=== PATIENT | female | born 1995 | race Caucasian/White ===

== ENCOUNTER 2020-02-01 20:35 | Emergency (ER) | payer OTHER ==
[2020-02-01] MEDS ORDERED: MORPHINE SULFATE 10 MG/ML INJ IV ONE ×2 (21:38→23:24)
[2020-02-01] MEDS ORDERED: ONDANSETRON HCL INJ/PF 4 MG/2 ML SDV IV ONE ×2 (21:39→23:24)
[2020-02-01] MEDS ORDERED: DIAZEPAM INJ 10 MG/2 ML DISP.SYRIN IV ONE (21:40)
[2020-02-01] MEDS ORDERED: KETAMINE HCL INJ 500 MG/10 ML VIAL IV ONE (22:41)
--- NOTE | 2020-02-01 23:59 | RADIOLOGY REPORT (SQ) ---
INDICATION: RightTMJ dislocation . COMPARISON: None CORRELATION: None TECHNIQUE: Noncontrast spiral axial CT images were obtained of the facial bones. Multiplanar reconstructions. This exam was performed according to our departmental dose-optimization program, which includes automated exposure control, adjustment of the mA and/or kV according to patient size and/or use of iterative reconstruction techniques. FINDINGS: Examination is not adequate for evaluation of intracranial contents. Mastoid air cells are clear. Visualized paranasal sinuses are clear. Orbits and eyeballs are unremarkable. No acute displaced fracture seen of the facial bones. Bilateral TMJ dislocations.. . IMPRESSION: Bilateral TMJ dislocation..
[2020-02-02] MEDS ORDERED: METOCLOPRAMIDE HCL INJ/PF 10 MG/2 ML SDV IV ONE (00:43)
[2020-02-02] MEDS ORDERED: PROMETHAZINE HCL INJ 50 MG/1 ML VIAL IM PRN (01:55)
[2020-02-02] MEDS ORDERED: PROMETHAZINE HCL INJ 25 MG/1 ML VIAL ONE (01:59)
--- NOTE | 2020-02-02 02:37 | ER Document Report ---
Entered by BRINDA DUEÑAS SCRIBE 02/01/20 [id number] Acting as scribe for:JOSE LUIS HDZ MD ED General - General Chief Complaint: Jaw Pain Stated Complaint: MOUTH CAN NOT CLOSE Primary Care Provider: BOZENA SANTORO MD [NO LOCAL MD] - Follow up as needed Information source: Patient Notes: This 24-year-old female presents to the emergency department after yawning and having the inability to close her mouth after. Patient said that she feels severe pain in her jaw. Patient explains that she had a root canal done three weeks ago on the right side. Patient said that she feels like there is a bone that is not allowing her to close her mouth. Patient is unable to talk on exam. She provided all information through text on a cellular device at bedside. - Related Data Allergies/Adverse Reactions: No Known Allergies Allergy (Unverified 02/01/20 23:18) Home Medications: BCP Past Medical History - General Information source: Patient - Social History Smoking Status: Never Smoker Cigarette use (# per day): No Chew tobacco use (# tins/day): No Family History: Reviewed & Not Pertinent Patient has suicidal ideation: No Patient has homicidal ideation: No - Medical History Medical History: Negative Surgical Hx: Negative Review of Systems - Review of Systems Constitutional: No symptoms reported EENT: See HPI, Mouth pain, Other - Mouth unable to close Cardiovascular: No symptoms reported Respiratory: No symptoms reported Gastrointestinal: No symptoms reported Genitourinary: No symptoms reported Female Genitourinary: No symptoms reported Musculoskeletal: No symptoms reported Skin: No symptoms reported Hematologic/Lymphatic: No symptoms reported Neurological/Psychological: No symptoms reported -: Yes All other systems reviewed and negative Physical Exam - Vital signs Vitals: Temp Pulse Resp BP Pulse Ox 97 F L 78 16 157/70 H 100 02/01/20 20:42 02/01/20 20:42 02/01/20 20:42 02/01/20 20:42 02/01/20 20:42 - Notes Notes: Physical Exam: General: Alert, appears uncomfortable. HEENT: Atraumatic. PERRL. Extraocular movements intact. Oropharynx clear. Unable to close mouth. Neck: Supple. Non-tender. Respiratory: No respiratory distress. Clear and equal breath sounds bilaterally. Cardiovascular: Regular rate and rhythm. Abdominal: Normal Inspection. Non-tender. No distension. Normal Bowel Sounds. Back: No gross abnormalities. Extremities: Moves all four extremities. Upper extremities: Normal inspection. Normal ROM. Lower extremities: Normal inspection. No edema. Normal ROM. Neurological: Normal cognition. AAOx4. Normal speech. Psychological: Normal affect. Normal Mood. Skin: Warm. Dry. Normal color. Course - Re-evaluation Re-evalutation: 02/02/20 02:16 Patient resting comfortably not showing any signs of distress at this time. - Vital Signs Vital signs: Temp Pulse Resp BP Pulse Ox 97 F L 66 16 129/83 H 97 02/01/20 20:42 02/02/20 01:45 02/02/20 01:45 02/02/20 01:45 02/02/20 01:45 - Diagnostic Test Radiology reviewed: Image reviewed, Reports reviewed Radiology results interpreted by me: 02/02/20 02:16 CT scan of face shows bilateral closed TMJ dislocations. Postreduction plain film x-rays of TMJ joints shows successful reduction of TMJ dislocation bilateral. Procedures - Conscious Sedation Conscious sedation Consent obtained: Yes Indication: unable to close mouth/bilat TMJ dislocation ASA Classification: Choose one classification Emergent conditions applies.: E. - ASA Classification Airway Evaluation: Normal anatomy Mallampati Classification: Class 1 Used during procedure: IV access obtained, Pulse ox on pt., compliance monitor on pt. Medications administered: Ketamine Reversal agents: None I personally performed/intraservice time: 30 min or less Complications: No Discharge - Discharge Clinical Impression: TMJ (dislocation of temporomandibular joint) Condition: Stable Disposition: HOME, SELF-CARE Additional Instructions: Temporomandibular Joint Injury You have an injury to your jaw joint, called the temporomandibular (TMJ) joint. This type of injury usually heals well, but further evaluation is often necessary. Occasionally, chronic symptoms can develop if the TMJ fails to heal well. The joint should be rested. Stay on a diet which requires no chewing -- such as milkshakes, applesauce, and puddings. Avoid any motion of the jaw which provokes pain. Periodic ice packs help decrease swelling and pain. If the physician is suspicious of a major hidden fracture, or if you fail to improve as expected, a specialized X-ray (Panorex) may be scheduled. You should follow up as instructed, and call the physician if you encounter any problems. Today you had a bilateral temporomandibular joint dislocation occurring due to opening your mouth wide during a yawn. CT scan showed bilateral TM J dislocations. And you underwent a procedure with successful closed reduction of both TMJ dislocations proven by plain film x- rays. Currently we have given you a wrap to allow you not to open your mouth wide at this time or to yawn. Please wear this turban wrap around your head and chin and remove prior to going to sleep. And hopefully this reoccurrence does not occur. Advise follow-up with an ear nose and throat doctor. You have shared that you have a dental procedure schedule next week to place crowns in your mouth. With that discussion I recommended that you try to postpone that procedure for now and and have follow-up with an ear nose and throat doctor to be certain that you are stable in terms of the TMJ joints to have such a procedure. Referrals: BOZENA SANTORO MD [NO LOCAL MD] - Follow up as needed I personally performed the services described in the documentation, reviewed and edited the documentation which was dictated to the scribe in my presence, and it accurately records my words and actions.
--- NOTE | 2020-02-02 02:46 | RADIOLOGY REPORT (SQ) ---
EXAM DESCRIPTION: XR TEMPOROMANDIBULAR JOINT OPEN AND CLOSED BILATERAL COMPLETED DATE/TME: 02/02/2020 01:36 CLINICAL HISTORY: 24 years, Female, post reduction of bilateral TMJ dislocation COMPARISON: CT facial dated 02/01/2020 NUMBER OF VIEWS: Three TECHNIQUE: AP lateral and oblique closed mouth images of the TMJ LIMITATIONS: None. FINDINGS: The previously seen bilateral TMJ dislocations appear reduced. No acute fracture is identified. No large soft tissue swelling. IMPRESSION: Reduction of the bilateral TMJ dislocation. copyright 2010 [employer]- All Rights Reserved
[2020-02-02 02:47] VITALS: BP 136/85
== END 2020-02-02 02:57 | disposition home or self-care (01) ==
LOC: ER 20:35
DX: S03.03XA Dislocation of jaw, bilateral, initial encounter (principal); R68.84 Jaw pain; X58.XXXA Exposure to other specified factors, initial encounter
CPT/HCPCS: 96376; 99284; 96372; 99152; 96374; 96375; 70330; 70486; 21480; J3360; J3490; J2765; J2270; J2550; J2405